=== PATIENT | female | born 1990 ===

== ENCOUNTER → 2018-06-30 | Outpatient (CLI) | payer SELFPAY ==
[~2018-06-30] MED LIST: PREN-127 PO
[2018-06-30 15:47] LABS: PLATELET COUNT, AUTOMATED 239 K/uL (150-450)
== END ==
LOC: LAB 14:38
PROVIDERS: ATTEND Student in an Organized Health Care Education/Training Program
DX: Z34.91 Encounter for supervision of normal pregnancy, unspecified, first trimester (principal)
CPT/HCPCS: 85025; 86592; 86703; 86762; 86787; 86850; 86900; 86901; 87340; 87491; 87591

== ENCOUNTER → 2018-07-31 | Outpatient (CLI) | payer SELFPAY | LOC: LAB 08:21 | PROVIDERS: ATTEND Obstetrics & Gynecology | DX: Z34.91 Encounter for supervision of normal pregnancy, unspecified, first trimester (principal) | CPT/HCPCS: 81001; 87088 ==

== ENCOUNTER → 2018-09-04 | Outpatient (CLI) | payer SELFPAY | LOC: LAB 11:15 | PROVIDERS: ATTEND Obstetrics & Gynecology | DX: Z34.82 Encounter for supervision of other normal pregnancy, second trimester (principal) | CPT/HCPCS: 36415; 81511 ==

== ENCOUNTER → 2018-09-25 | Outpatient (CLI) | payer MEDICAID ==
--- NOTE | 2018-09-25 16:28 | RADIOLOGY IMAGING REPORT ---
FACILITY: [facility] - [place] PATIENT NAME: Fernando Bailey : 1990 MR: [id number] V: [id number] EXAM DATE: ORDERING PHYSICIAN: PROSPER MCCLAIN TECHNOLOGIST: Location: [facility] [place] Patient: Fernando Bailey : 1990 Visit/Account:[id number] Date of Sevice: 09/25/2018 EXAMINATION: Ultrasound transabdominal OB > 14 weeks with anatomic evaluation HISTORY: Anatomic survey COMPARISON: None. TECHNIQUE: Transabdominal imaging was performed for assessment of the fetus and maternal pelvic structures. T ransvaginal imaging was not performed. FINDINGS: Placenta: Posterior without previa. Uterus: Gravid, otherwise normal Cervix: Long and closed. Maternal Ovaries: Not visualized. Maternal and other adnexa findings: Not visualized Intrauterine gestations: One. presentation: Cephalic heart rate: Normal and regular at 155 bpm Amniotic fluid index: 18.55 cm Largest amniotic fluid pocket: 5.66 cm Gestational Parameters: BPD: 4.91 cm 20 weeks/ six days, 26% HC: 18.51 cm 21 weeks/ zero days, 18% AC: 15.74 cm 21 weeks/ zero days, 26% FL: 3.66 cm 21 weeks/ five days, 47% Average ultrasound age (AUA): 21 weeks/one days, LEO 02/04/2019 Estimated gestational age by LMP: 21 weeks/three days, LEO 02/02/2019 Estimated weight (EFW): 405 grams +/- 59 grams EFW for LMP: 31 percentile Anatomic Survey: Intracranial structures, 4-chamber heart, stomach, kidneys, urinary bladder, spine, 3-vessel cord and cord insertion are unremarkable. Two upper and two lower extremities visualized. Cardiac ventricula r outflow tracts, palate and lips are unremarkable in appearance. IMPRESSION: Single viable fetus in cephalic presentation with an estimated gestational age by measur ements of 21 weeks and one day. Estimated gestational age by LMP is 21 weeks and three days. Estimated weight is 405 g equivalent to the 31st percentile Report Dictated By: Yamel Garcia MD at 09/25/2018 4:19 PM Report E-Signed By: Yamel Garcia MD at 09/25/2018 4:22 PM WSN:[id number]
== END ==
LOC: RAD 14:28
PROVIDERS: ATTEND Student in an Organized Health Care Education/Training Program
DX: Z02.9 Encounter for administrative examinations, unspecified (principal)

== ENCOUNTER → 2018-11-04 | Outpatient (CLI) | payer MEDICAID ==
[2018-11-04 11:53] LABS: PLATELET COUNT, AUTOMATED 206 K/uL (150-450)
== END ==
LOC: LAB 08:10
PROVIDERS: ATTEND Student in an Organized Health Care Education/Training Program
DX: Z34.92 Encounter for supervision of normal pregnancy, unspecified, second trimester (principal)
CPT/HCPCS: 36415; 82950; 85025